=== PATIENT | male | born 1995 | race Caucasian/White ===

== ENCOUNTER 2021-04-07 17:57 | Emergency (ER) | payer OTHER ==
[2021-04-07] MEDS ORDERED: Ketorolac Tromethamine 30 MG/ML VIAL ONE (18:13)
[2021-04-07] MEDS ORDERED: Bupivacaine 0.5% 10 ML VIAL ONE (18:23)
[2021-04-07] MEDS ORDERED: Boostrix 0.5 ML (Tdap) VIAL ONE (18:38)
[2021-04-07] MEDS ORDERED: Lidocaine 1% PF 5 ML VIAL ONE (19:58)
[2021-04-07] MEDS ORDERED: Bacitracin 1 PK ONE (20:23)
== END 2021-04-07 20:52 | disposition home or self-care (01) ==
LOC: ERS 17:57
DX: S51.812A Laceration without foreign body of left forearm, initial encounter (principal); S80.212A Abrasion, left knee, initial encounter; S70.212A Abrasion, left hip, initial encounter; V29.40XA Motorcycle driver injured in collision with unspecified motor vehicles in traffic accident, initial encounter
CPT/HCPCS: 12002; 90471; 90715; 96374; G0390; J1885; J3490